=== PATIENT | male | born 1980 | race Caucasian/White ===

== ENCOUNTER 2016-08-23 19:54 | Emergency (ER) | payer OTHER ==
--- NOTE | 2016-08-23 20:16 | EDM.PDOC ---
ED HPI GENERAL MEDICAL PROBLEM - General Chief Complaint: General Stated Complaint: FLU SYMPTOMS Time Seen by Provider: 08/23/16 20:10 Source of Information: Reports: Patient, RN - History of Present Illness INITIAL COMMENTS - FREE TEXT/NARRATIVE: Onset about 48 hours ago of a mild cough body aches fever and malaise. No vomiting. He has a sore throat. He coughed very hard and had a streak of blood in his sputum. generalized Pain Score (Numeric/FACES): 8 - Related Data Allergies Allergy/AdvReac Type Severity Reaction Status Date / Time No Known Allergies Allergy Verified 08/23/16 20:05 Home Meds: Home Meds . [No Known Home Meds] 08/23/16 [History] Past Medical History Endocrine/Metabolic History: Denies: Diabetes, type I, Diabetes, type II ED ROS GENERAL - Review of Systems Review Of Systems: See Below Constitutional: Reports: fever, chills Respiratory: Reports: Cough, Sputum, Hemoptysis (Scant) Cardiovascular: Denies: Chest pain GI/Abdominal: Denies: Abdominal pain, Anorexia ED EXAM, GENERAL - Physical Exam Exam: See Below Free Text/Narrative:: Alert nontoxic appearance. Moderate posterior pharyngeal erythema particularly on the posterior soft palate and uvula. Voice normal. No evidence of upper airway compromise. No Max or sinus tenderness. Lungs clear to auscultation. Abdomen nontender. Mentation normal. Course - Vital Signs Last Recorded V/S: Last Vital Signs Temp 98.5 F 08/23/16 20:05 Pulse 98 08/23/16 20:05 Resp 20 08/23/16 20:05 BP 135/77 08/23/16 20:05 Pulse Ox 93 L 08/23/16 20:05 - Orders/Labs/Meds Orders: Active Orders 24 hr Category Date Time Status CXR [Chest 2V] [CR] Stat Exams 08/23/16 20:11 Taken CULTURE STREP A CONFIRMATION [] Stat Lab 08/23/16 20:20 Results STREP SCRN A RAPID W CULT CONF [] Stat Lab 08/23/16 20:20 Results Amoxicillin [Amoxil] Med 08/23/16 21:30 Once 500 mg PO ONETIME ONE Oseltamivir [Tamiflu] Med 08/23/16 21:30 Once 75 mg PO ONETIME ONE Medication Orders Amoxicillin (Amoxil) 500 mg PO ONETIME ONE Stop: 08/23/16 21:31 Oseltamivir Phosphate (Tamiflu) 75 mg PO ONETIME ONE Stop: 08/23/16 21:31 Labs: Laboratory Tests 08/23/16 08/23/16 Range/Units 20:24 20:24 WBC 10.69 (4.0-11.0) K/uL RBC 5.81 (4.50-5.90) M/uL Hgb 17.1 H (13.0-17.0) g/dL Hct 49.4 (38.0-50.0) % MCV 85.0 (80.0-98.0) fL MCH 29.4 (27.0-32.0) pg MCHC 34.6 (31.0-37.0) g/dL RDW Std Deviation 42.1 (28.0-62.0) fl RDW Coeff of [place] 14 (11.0-15.0) % Plt Count 159 (150-400) K/uL MPV 11.00 (7.40-12.00) fL Neut % (Auto) 70.4 (48.0-80.0) % Lymph % (Auto) 15.5 L (16.0-40.0) % [place] % (Auto) 13.8 (0.0-15.0) % Eos % (Auto) 0.1 (0.0-7.0) % Baso % (Auto) 0.2 (0.0-1.5) % Neut # (Auto) 7.5 H (1.4-5.7) K/uL Lymph # (Auto) 1.7 (0.6-2.4) K/uL [place] # (Auto) 1.5 H (0.0-0.8) K/uL Eos # (Auto) 0.0 (0.0-0.7) K/uL Baso # (Auto) 0.0 (0.0-0.1) K/uL Nucleated RBC % 0.0 /100WBC Nucleated RBCs # 0 K/uL Sodium 138 (136-146) mmol/L Potassium 4.1 (3.5-5.1) mmol/L Chloride 105 (98-110) mmol/L Carbon Dioxide 23 (21-31) mmol/L BUN 13 (6.0-23.0) mg/dL Creatinine 1.2 (0.6-1.5) mg/dL Est Cr Clr Drug Dosing 86.74 mL/min Estimated GFR (MDRD) > 60.0 ml/min Glucose 110 (60-110) mg/dL Calcium 9.2 (8.8-10.8) mg/dL Total Bilirubin 0.3 (0.1-1.5) mg/dL AST 26 (5-40) IU/L ALT 39 (8-54) IU/L Alkaline Phosphatase 53 (40-150) Total Protein 7.1 (6.0-8.0) g/dL Albumin 4.2 (3.5-5.0) g/dL Globulin 2.9 (2.0-3.5) g/dL Albumin/Globulin Ratio 1.4 (1.3-2.8) Meds: Medications Generic Name Dose Route Start Last Admin Trade Name Freq PRN Reason Stop Dose Admin Amoxicillin 500 mg 08/23/16 21:30 Amoxil PO 08/23/16 21:31 ONETIME ONE Oseltamivir Phosphate 75 mg 08/23/16 21:30 Tamiflu PO 08/23/16 21:31 ONETIME ONE Discontinued Medications Generic Name Dose Route Start Last Admin Trade Name Freq PRN Reason Stop Dose Admin Tramadol HCl 100 mg 08/23/16 21:18 Ultram PO 08/23/16 21:19 ONETIME ONE Departure - Departure Time of Disposition: 12:30 Disposition: Home, Self-Care 01 Clinical Impression: Uvulitis, Influenza-like illness Forms: ED Department Discharge Additional Instructions: He is prescribed amoxicillin 500 mg 3 times a day x10 days as well as Tamiflu 75 mg twice a day x5 days. I wrote a note for him to be off work until next Tuesday. Also prescribed tramadol 50 mg 2 every 4 hours when necessary pain dispense 30 no refills he may also take Tylenol as needed. - My Orders Last 24 Hours: My Active Orders 08/23/16 20:11 CXR [Chest 2V] [CR] Stat 08/23/16 20:20 CULTURE STREP A CONFIRMATION [RM] Stat STREP SCRN A RAPID W CULT CONF [RM] Stat 08/23/16 21:30 Amoxicillin [Amoxil] 500 mg PO ONETIME ONE Oseltamivir [Tamiflu] 75 mg PO ONETIME ONE - Assessment/Plan Last 24 Hours: My Active Orders 08/23/16 20:11 CXR [Chest 2V] [CR] Stat 08/23/16 20:20 CULTURE STREP A CONFIRMATION [] Stat STREP SCRN A RAPID W CULT CONF [] Stat 08/23/16 21:30 Amoxicillin [Amoxil] 500 mg PO ONETIME ONE Oseltamivir [Tamiflu] 75 mg PO ONETIME ONE
[2016-08-23 20:57] LABS: CHLORIDE,CL 105 mmol/L (98-110); SODIUM,NA 138 mmol/L (136-146)
[2016-08-23] MEDS ORDERED: traMADol 50 MG Tab PO ONE (21:18)
[2016-08-23] MEDS ORDERED: Oseltamivir 75 MG Cap PO ONE (21:30)
[2016-08-23] MEDS ORDERED: Amoxicillin 500 MG Cap PO ONE (21:30)
[2016-08-23 23:43] VITALS: BP 127/74
--- NOTE | 2016-08-24 11:10 | CR ---
EXAM DATE: 08/23/16 PATIENT'S AGE: 35 Patient: RUBÉN PERDOMO Facility: [place], [place] Site . Site : [id number] Study: XRay Chest [id number] 8:41:09 PM Ordering Physician: Sho Castro Final Report: INDICATION: Cough and fever for 3 days TECHNIQUE: Chest 2 views. COMPARISON: None FINDINGS: Cardiovascular and mediastinum: Heart size and vasculature are normal in caliber and appearance. Mediastinum is within normal limits. Lungs and pleural spaces: Lungs are clear. No sign of infiltrate or mass. No sign of pleural effusion. No pneumothorax. Bones and soft tissues: No significant findings. IMPRESSION: No sign of acute disease. Dictated by Lizette Aguialr MD @ Aug 23 2016 8:56PM (Electronic Signature) Report Signed by Proxy and Original Signed Document filed in the Medical Record. CHELLE
== END 2016-08-23 21:56 | disposition home or self-care (01) ==
LOC: MW.ED 19:54
DX: K12.2 Cellulitis and abscess of mouth (principal); J11.1 Influenza due to unidentified influenza virus with other respiratory manifestations
CPT/HCPCS: 36415; 71020; 80053; 85025; 87081; 87804; 87880; 99284; A9270; 99283